=== PATIENT | male | born 1950 | race Caucasian/White ===

== ENCOUNTER 2022-02-23 00:54 | Observation (INO) | payer MEDICARE ==
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
[2022-02-23 02:33] LABS: Absolute Neutrophil Ct (ANC) 6.07 (1.4-6.9); Basophil (Absolute #) 0.01 (0-0.4); Eosinophil % 1.2 % (0.00-5.0); Eosinophil (Absolute #) 0.11 (0-0.5); Hematocrit 34.3 % (42-50); Lymphocyte (Absolute #) 2.49 (1.0-4.6); Lymphocytes % 26.7 % (24.0-44.0); Mean Cell Volume 88.4 fl (78-100); Mean Corpuscular Hemoglobin 28.4 pg (26-32); Mean Corpuscular Hgb Concent. 32.1 g/dl (32-36); Mean Platelet Volume 10.6 fl (7.5-11.0); Monocyte (Absolute #) 0.65 (0.0-1.3); Platelet Count 219 K/mm3 (150-450); Red Blood Count 3.88 M/mm3 (4.1-5.6); Red Cell Distribution Width 16.3 % (11.5-14.0); White Blood Count 9.3 K/mm3 (4.0-10.5)
[2022-02-23 02:44] LABS: ACETAMINOPHEN < 10 ug/ml (10-30); ALBUMIN 3.9 g/dL (3.5-5.0); ALKALINE PHOSPHATASE 67 U/L (38-126); ANION GAP 15.7 MEQ/L (5-15); BLOOD UREA NITROGEN 19 mg/dL (9-20); CHLORIDE 107 mmol/L (98-107); Calcium 9.1 mg/dL (8.4-10.2); Carbon Dioxide 20 mmol/L (22-30); Creatinine 1 0.94 mg/dL (0.66-1.25); EST GLOMERULAR FILTRATION RATE > 60.0 ML/MIN; ETHYL ALCOHOL < 10 mg/dL (0-10); Glucose 106 mg/dL (74-106); Potassium 3.7 mmol/L (3.5-5.1); SALICYLATE < 1.0 mg/dL (2-20); SGOT/AST 19 U/L (17-59); SGPT/ALT 9 U/L (0-50); SODIUM 139 mmol/L (137-145); Total Protein 6.5 g/dL (6.3-8.2)
[2022-02-23 03:33] LABS: Appearance CLEAR (CLEAR); Bilirubin NEGATIVE (NEGATIVE); Glucose NEGATIVE (NEGATIVE); Ketones NEGATIVE (NEGATIVE)
[2022-02-23 03:34] LABS: Dipstick done @ ? MAIN LAB; Nitrite NEGATIVE (NEGATIVE); Ph 6.5 (5-6); Protein,Urine Dip NEGATIVE (Negative); RBC MODERATE Ery/ul (0-5); Urobilinogen 0.2 mg/dL (0-1)
[2022-02-23 03:35] LABS: Bacteria NONE SEEN /HPF (NEGATIVE); RBC NONE SEEN /HPF (0-2); Urine Cultured Indicated? NO; WBC NONE SEEN /HPF (0-5)
[2022-02-23 03:50] LABS: Amphetamine,Urine NEGATIVE (NEGATIVE); Barbiturate,Urine NEGATIVE (NEGATIVE); Benzodiazepine,Urine NEGATIVE (NEGATIVE); Cocaine,Urine NEGATIVE (NEGATIVE); Methadone,Urine NEGATIVE (NEGATIVE); Opiate,Urine NEGATIVE (NEGATIVE); PCP,Urine NEGATIVE (NEGATIVE); THC,Urine NEGATIVE (NEGATIVE)
[2022-02-23 04:38] LABS: INFLUENZA A NEGATIVE (NEGATIVE); INFLUENZA B NEGATIVE (NEGATIVE); RESPIRATORY SYNCTIAL VIRUS NEGATIVE (Negative); SARS-CoV-2 Xpert Express NEGATIVE (NEGATIVE)
[2022-02-23] MEDS ORDERED: Haldol 5 MG ONE (05:47)
[2022-02-23] MEDS ORDERED: Haldol 5 MG IV ONE (05:51)
[2022-02-23] MEDS ORDERED: HUMALOG SQ PRN (17:39)
[2022-02-23] MEDS ORDERED: DUONEB 0.5-3 MG/3 ml Neb IH PRN (17:39)
[2022-02-23] MEDS ORDERED: Haldol 5 MG IM PRN (20:44)
[2022-02-23] MEDS: Cymbalta 30 MG Capsule PO SCH (20:53)
[2022-02-23] MEDS: Apresoline 25 MG TABLET PO SCH (20:58)
[2022-02-23] MEDS: NORVASC 5 MG PO SCH (20:58)
[2022-02-23] MEDS: LYRICA 150MG PO SCH (20:59)
[2022-02-23] MEDS ORDERED: Seroquel 100 MG PO SCH (22:00)
[2022-02-24] MEDS: Coreg 6.25 MG PO SCH ×3 (01:38→21:19)
[2022-02-24 05:35] LABS: Absolute Neutrophil Ct (ANC) 5.67 (1.4-6.9); Basophil (Absolute #) 0.01 (0-0.4); Eosinophil % 1.3 % (0.00-5.0); Eosinophil (Absolute #) 0.12 (0-0.5); Hematocrit 36.3 % (42-50); Hemoglobin 11.4 gm/dl (12.5-18.0); Lymphocyte (Absolute #) 2.56 (1.0-4.6); Lymphocytes % 28.5 % (24.0-44.0); Mean Cell Volume 89.2 fl (78-100); Mean Corpuscular Hgb Concent. 31.4 g/dl (32-36); Monocyte (Absolute #) 0.62 (0.0-1.3); Monocytes % 6.9 % (0.0-12.0); Neutrophil % 63.2 % (36.0-66.0); Platelet Count 227 K/mm3 (150-450); Red Blood Count 4.07 M/mm3 (4.1-5.6); Red Cell Distribution Width 16.4 % (11.5-14.0)
[2022-02-24] MEDS: TYLENOL 325 MG PO PRN ×2 (05:35→13:18)
[2022-02-24 05:54] LABS: ALBUMIN 3.8 g/dL (3.5-5.0); ALKALINE PHOSPHATASE 68 U/L (38-126); ANION GAP 13.9 MEQ/L (5-15); BLOOD UREA NITROGEN 14 mg/dL (9-20); CHLORIDE 109 mmol/L (98-107); Calcium 8.8 mg/dL (8.4-10.2); Carbon Dioxide 19 mmol/L (22-30); Creatinine 1 0.88 mg/dL (0.66-1.25); EST GLOMERULAR FILTRATION RATE > 60.0 ML/MIN; Glucose 109 mg/dL (74-106); Potassium 3.6 mmol/L (3.5-5.1); SGOT/AST 20 U/L (17-59); SGPT/ALT 19 U/L (0-50); SODIUM 138 mmol/L (137-145); Total Protein 6.6 g/dL (6.3-8.2)
--- NOTE | 2022-02-24 08:02 | PCM.SSS ---
History of Present Illness - Chief Complaint Chief Complaint: psychosis History of Present Illness: is a 71 year old male patient from [facility], he spent a day in the ER, was sent for aggressive behavior toward staff/psychosis. he tells me he had a couple of bad days, states he was upset because he couldn't call his son and they wouldn't let him use his phone. he has been in the ER for nearly 24 hours and on the floor overnight and has not had any hostility, received haldol x 1 dose in the ER when he first arrived. he is alert, states he is hoping to move to assisted living in [place] near his son but will have to use up his savings to pay before medicaid/medicare will cover his AL costs which points to good logic and processing. - Review of Systems Constitutional: No Fever, No Chills Respiratory: No Cough, No Short Of Breath Cardiac: No Chest Pain, No Edema, No Syncope Abdominal/Gastrointestinal: No Abdominal Pain, No Nausea, No Vomiting, No Diar hussein Psychological: Emotional Lability Medications & Allergies Home Medications: Home Medication List Allopurinol 300 mg [Zyloprim 300 mg] 300 mg PO DAILY 02/23/22 [History Confirmed 02/23/22] Amlodipine Besylate 5 mg [Norvasc 5 mg] 5 mg PO BID 02/23/22 [History Confirmed 02/23/22] Carbidopa/Levodopa [Carbidopa-Levo 25-100 mg Odt] 1 tab PO TID 02/23/22 [History Confirmed 02/23/22] Carvedilol [Coreg] 6.25 mg PO BID 02/23/22 [History Confirmed 02/23/22] Clotrimazole/Betamet Diprop [Lotrisone Cream] 1 applic TOP BID 02/23/22 [History Confirmed 02/23/22] Duloxetine HCl 30 mg [Cymbalta 30 MG Capsule] 30 mg PO BID 02/23/22 [History Confirmed 02/23/22] Esomeprazole Magnesium 40 mg PO BID 02/23/22 [History Confirmed 02/23/22] Ezetimibe/Simvastatin [Ezetimibe-Simvastatin 10-20 mg] 1 tab PO HS 02/23/22 [His tory Confirmed 02/23/22] Famotidine 20 mg [Pepcid 20 MG] 1 tab PO DAILY 02/23/22 [History Confirmed 02/23/22] Finasteride 5 mg [Proscar 5 MG] 5 mg PO DAILY 02/23/22 [History Confirmed 02/23/22] Hydralazine HCl 25 mg PO TID 02/23/22 [History Confirmed 02/23/22] Ipratropium/Albuterol Sulfate [Iprat-Albut 0.5-3(2.5) mg/3 ml] 1 unit IH QID 02/23/22 [History Confirmed 02/23/22] Metformin HCl 500 mg [Glucophage 500 MG] 500 mg PO BID 02/23/22 [History Confirmed 02/23/22] Nystatin Powder 15 gm [Nystop Powder 15 gm] 1 applic TOP BID 02/23/22 [History Confirmed 02/23/22] Pregabalin [Lyrica 150Mg] 150 mg PO BID 02/23/22 [History Confirmed 02/23/22] Quetiapine Fumarate [Seroquel] 25 mg PO DAILY 02/23/22 [History Confirmed 02/23/22] Quetiapine Fumarate [Seroquel] 50 mg PO HS 02/23/22 [History Confirmed 02/23/22] Roflumilast [Daliresp] 500 mg PO DAILY 02/23/22 [History Confirmed 02/23/22] Sitagliptin Phosphate [Januvia] 100 mg PO DAILY 02/23/22 [History Confirmed 02/23/22] Tamsulosin HCl 0.4 mg [Flomax 0.4 MG] 0.4 mg PO DAILY 02/23/22 [History Confirmed 02/23/22] cloNIDine [Clonidine] 0.1 mg TOP CLARIFY 02/23/22 [History Confirmed 02/23/22] Allergies/Adverse Reactions: Allergies Allergy/AdvReac Type Severity Reaction Status Date / Time atorvastatin Allergy Verified 02/23/22 01:12 celecoxib Allergy Verified 02/23/22 01:26 clindamycin Allergy Verified 02/23/22 01:27 loratadine [From Claritin] Allergy Verified 02/23/22 01:27 - Past Medical History Past Medical History: Yes Neurological History: Alzheimer's Disease, Dementia, Other ENT History: Cataracts Cardiac History: Coronary Artery Disease, Hypertension Respiratory History: COPD, Pneumonia, Other Endocrine Medical History: Diabetes Type II Musculoskelatal History: Osteoarthritis, Other GI Medical History: GERD History: Renal Disease, Other Pyscho-Social History: Other Male Reproductive Disorders: Prostate Problems Comment: PARKINSON'S DISEASE, ANEMIA, ACUTE KINDEY FAILURE, BPH, OBSTRUCTIVE AND REFLUX UROPATHY, HALLUCINATIONS, POSTLAMINECTOMY SYNDROME, SPINAL STENOSIS, PSYCHOTIC DISORDER, CHRONIC RESPIRATORY FAILURE, ALTERED MENTAL STATUS, GOUT, HYPERLIPIDEMIA - Past Surgical History Past Surgical History: Yes Neuro Surgical History: No Pertinent History Cardiac History: CABG Respiratory Surgery: No Pertinent History GI Surgical History: No Pertinent History Genitourinary Surgical Hx: No Pertinent History Musculskeletal Surgical Hx: Other Male Surgical History: No Pertinent History Other Surgical History: RADICULOPATHY, LUMBAR REGION - Social History Smoking Status: Former smoker Exposure to second hand smoke: No Alcohol: None Drug Use: none - Physical Exam Vital Signs: Vital Signs - 24 hr Temp Pulse Resp BP Pulse Ox 02/24/22 07:15 99 F 93 H 18 157/101 96 02/24/22 04:00 99.5 F 87 18 133/77 96 02/24/22 00:00 97.8 F 49 L 20 134/60 95 02/23/22 19:50 98.2 F 39 L 16 175/90 98 02/23/22 19:16 75 18 96 02/23/22 13:49 78 18 138/66 99 02/23/22 09:14 70 18 149/76 98 General Appearance: no apparent distress Neurologic Exam: alert, oriented x 3, cooperative Respiratory Exam: normal breath sounds, lungs clear, No respiratory distress Cardiovascular Exam: regular rate/rhythm, normal heart sounds, normal peripheral pulses Gastrointestinal/Abdomen Exam: soft, normal bowel sounds, No tenderness, No mass Extremity Exam: normal inspection, normal range of motion, pelvis stable Skin Exam: normal color, warm, dry, No rash Results - Labs Lab/Micro Results: Lab Results-Last 24 Hours 02/23/22 02/23/22 02/24/22 Range/Units 09:17 21:48 05:16 WBC 9.0 (4.0-10.5) K/mm3 RBC 4.07 L (4.1-5.6) M/mm3 Hgb 11.4 L (12.5-18.0) gm/dl Hct 36.3 L (42-50) % MCV 89.2 (78-100) fl MCH 28.0 (26-32) pg MCHC 31.4 L (32-36) g/dl RDW 16.4 H (11.5-14.0) % Plt Count 227 (150-450) K/mm3 MPV 10.0 (7.5-11.0) fl Gran % 63.2 (36.0-66.0) % Eos # (Auto) 0.12 (0-0.5) Absolute Lymphs (auto) 2.56 (1.0-4.6) Absolute Monos (auto) 0.62 (0.0-1.3) Lymphocytes % 28.5 (24.0-44.0) % Monocytes % 6.9 (0.0-12.0) % Eosinophils % 1.3 (0.00-5.0) % Basophils % 0.1 (0.0-0.4) % Absolute Granulocytes 5.67 (1.4-6.9) Basophils # 0.01 (0-0.4) Sodium (137-145) mmol/L Potassium (3.5-5.1) mmol/L Chloride (98-107) mmol/L Carbon Dioxide (22-30) mmol/L Anion Gap (5-15) MEQ/L BUN (9-20) mg/dL Creatinine (0.66-1.25) mg/dL Estimated GFR ML/MIN Glucose (74-106) mg/dL POC Glucometer 143 H 121 H (74 to 106) mg/dL Calcium (8.4-10.2) mg/dL Total Bilirubin (0.2-1.3) mg/dL AST (17-59) U/L ALT (0-50) U/L Alkaline Phosphatase (38-126) U/L Serum Total Protein (6.3-8.2) g/dL Albumin (3.5-5.0) g/dL 02/24/22 02/24/22 Range/Units 05:16 06:47 WBC (4.0-10.5) K/mm3 RBC (4.1-5.6) M/mm3 Hgb (12.5-18.0) gm/dl Hct (42-50) % MCV (78-100) fl MCH (26-32) pg MCHC (32-36) g/dl RDW (11.5-14.0) % Plt Count (150-450) K/mm3 MPV (7.5-11.0) fl Gran % (36.0-66.0) % Eos # (Auto) (0-0.5) Absolute Lymphs (auto) (1.0-4.6) Absolute Monos (auto) (0.0-1.3) Lymphocytes % (24.0-44.0) % Monocytes % (0.0-12.0) % Eosinophils % (0.00-5.0) % Basophils % (0.0-0.4) % Absolute Granulocytes (1.4-6.9) Basophils # (0-0.4) Sodium 138 (137-145) mmol/L Potassium 3.6 (3.5-5.1) mmol/L Chloride 109 H (98-107) mmol/L Carbon Dioxide 19 L (22-30) mmol/L Anion Gap 13.9 (5-15) MEQ/L BUN 14 (9-20) mg/dL Creatinine 0.88 (0.66-1.25) mg/dL Estimated GFR > 60.0 ML/MIN Glucose 109 H (74-106) mg/dL POC Glucometer 116 H (74 to 106) mg/dL Calcium 8.8 (8.4-10.2) mg/dL Total Bilirubin 0.80 (0.2-1.3) mg/dL AST 20 (17-59) U/L ALT 19 (0-50) U/L Alkaline Phosphatase 68 (38-126) U/L Serum Total Protein 6.6 (6.3-8.2) g/dL Albumin 3.8 (3.5-5.0) g/dL Accuchecks Date 02/24/22 Time 06:47 Assessment/Plan (1) 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 Code(s): F03.91 - UNSPECIFIED DEMENTIA WITH BEHAVIORAL DISTURBANCE (2) Parkinson disease Current Visit: Yes Status: Acute Code(s): G20 - PARKINSON'S DISEASE Hospital Summary - Vitals & Intake/Output Vital Signs: Vital Signs Temperature 99 F 02/24/22 07:15 Pulse Rate 93 H 02/24/22 07:15 Respiratory Rate 18 02/24/22 07:15 Blood Pressure 157/101 02/24/22 07:15 O2 Sat by Pulse Oximetry 96 02/24/22 07:15 Intake & Output: Intake & Output 02/21/22 02/22/22 02/23/22 02/24/22 11:59 11:59 11:59 11:59 Intake Total 400 Output Total 1350 Balance -950 Weight 98.1 kg 230 kg - Lab Result Diagrams: 02/24/22 05:16 02/24/22 05:16 Lab Results-Last 24 Hrs: Lab Results-Last 24 Hours 02/23/22 02/23/22 02/24/22 Range/Units 09:17 21:48 05:16 WBC 9.0 (4.0-10.5) K/mm3 RBC 4.07 L (4.1-5.6) M/mm3 Hgb 11.4 L (12.5-18.0) gm/dl Hct 36.3 L (42-50) % MCV 89.2 (78-100) fl MCH 28.0 (26-32) pg MCHC 31.4 L (32-36) g/dl RDW 16.4 H (11.5-14.0) % Plt Count 227 (150-450) K/mm3 MPV 10.0 (7.5-11.0) fl Gran % 63.2 (36.0-66.0) % Eos # (Auto) 0.12 (0-0.5) Absolute Lymphs (auto) 2.56 (1.0-4.6) Absolute Monos (auto) 0.62 (0.0-1.3) Lymphocytes % 28.5 (24.0-44.0) % Monocytes % 6.9 (0.0-12.0) % Eosinophils % 1.3 (0.00-5.0) % Basophils % 0.1 (0.0-0.4) % Absolute Granulocytes 5.67 (1.4-6.9) Basophils # 0.01 (0-0.4) Sodium (137-145) mmol/L Potassium (3.5-5.1) mmol/L Chloride (98-107) mmol/L Carbon Dioxide (22-30) mmol/L Anion Gap (5-15) MEQ/L BUN (9-20) mg/dL Creatinine (0.66-1.25) mg/dL Estimated GFR ML/MIN Glucose (74-106) mg/dL POC Glucometer 143 H 121 H (74 to 106) mg/dL Calcium (8.4-10.2) mg/dL Total Bilirubin (0.2-1.3) mg/dL AST (17-59) U/L ALT (0-50) U/L Alkaline Phosphatase (38-126) U/L Serum Total Protein (6.3-8.2) g/dL Albumin (3.5-5.0) g/dL 02/24/22 02/24/22 Range/Units 05:16 06:47 WBC (4.0-10.5) K/mm3 RBC (4.1-5.6) M/mm3 Hgb (12.5-18.0) gm/dl Hct (42-50) % MCV (78-100) fl MCH (26-32) pg MCHC (32-36) g/dl RDW (11.5-14.0) % Plt Count (150-450) K/mm3 MPV (7.5-11.0) fl Gran % (36.0-66.0) % Eos # (Auto) (0-0.5) Absolute Lymphs (auto) (1.0-4.6) Absolute Monos (auto) (0.0-1.3) Lymphocytes % (24.0-44.0) % Monocytes % (0.0-12.0) % Eosinophils % (0.00-5.0) % Basophils % (0.0-0.4) % Absolute Granulocytes (1.4-6.9) Basophils # (0-0.4) Sodium 138 (137-145) mmol/L Potassium 3.6 (3.5-5.1) mmol/L Chloride 109 H (98-107) mmol/L Carbon Dioxide 19 L (22-30) mmol/L Anion Gap 13.9 (5-15) MEQ/L BUN 14 (9-20) mg/dL Creatinine 0.88 (0.66-1.25) mg/dL Estimated GFR > 60.0 ML/MIN Glucose 109 H (74-106) mg/dL POC Glucometer 116 H (74 to 106) mg/dL Calcium 8.8 (8.4-10.2) mg/dL Total Bilirubin 0.80 (0.2-1.3) mg/dL AST 20 (17-59) U/L ALT 19 (0-50) U/L Alkaline Phosphatase 68 (38-126) U/L Serum Total Protein 6.6 (6.3-8.2) g/dL Albumin 3.8 (3.5-5.0) g/dL Micro Results-Entire Visit: Accuchecks Date 02/24/22 Time 06:47 - Procedures and Test Procedures and Tests throughout Hospitalization: Therapy Orders & Screens 02/23/22 19:00 Respiratory Therapy Assessment DAILY Comment: Diagnosis: psychosis - Discharge Disposition: XFER OTHER Condition: Stable Prescriptions: No Action Quetiapine Fumarate [Seroquel] 50 mg PO HS Quetiapine Fumarate [Seroquel] 25 mg PO DAILY Nystatin Powder 15 gm [Nystop Powder 15 gm] 1 applic TOP BID Pregabalin [Lyrica 150Mg] 150 mg PO BID Metformin HCl 500 mg [Glucophage 500 MG] 500 mg PO BID Clotrimazole/Betamet Diprop [Lotrisone Cream] 1 applic TOP BID Sitagliptin Phosphate [Januvia] 100 mg PO DAILY Ipratropium/Albuterol Sulfate [Iprat-Albut 0.5-3(2.5) mg/3 ml] 1 unit IH QID Hydralazine HCl 25 mg PO TID Finasteride 5 mg [Proscar 5 MG] 5 mg PO DAILY Famotidine 20 mg [Pepcid 20 MG] 1 tab PO DAILY Ezetimibe/Simvastatin [Ezetimibe-Simvastatin 10-20 mg] 1 tab PO HS Esomeprazole Magnesium 40 mg PO BID Roflumilast [Daliresp] 500 mg PO DAILY Duloxetine HCl 30 mg [Cymbalta 30 MG Capsule] 30 mg PO BID cloNIDine [Clonidine] 0.1 mg TOP CLARIFY Carvedilol [Coreg] 6.25 mg PO BID Carbidopa/Levodopa [Carbidopa-Levo 25-100 mg Odt] 1 tab PO TID Amlodipine Besylate 5 mg [Norvasc 5 mg] 5 mg PO BID Allopurinol 300 mg [Zyloprim 300 mg] 300 mg PO DAILY Tamsulosin HCl 0.4 mg [Flomax 0.4 MG] 0.4 mg PO DAILY Follow up with: ENVIVE,ENVIVE [Primary Care Provider] -
[2022-02-24] MEDS: LYRICA 150MG PO SCH ×2 (08:35→21:19)
[2022-02-24] MEDS: Cymbalta 30 MG Capsule PO SCH ×2 (08:35→21:19)
[2022-02-24] MEDS: NORVASC 5 MG PO SCH ×2 (08:35→21:18)
[2022-02-24] MEDS: Sinemet 25/100 MG PO SCH ×3 (08:35→21:18)
[2022-02-24] MEDS: Apresoline 25 MG TABLET PO SCH ×3 (08:35→21:18)
[2022-02-24] MEDS: Protonix 40MG Tablet PO SCH (08:35)
[2022-02-24] MEDS: Glucophage 500 MG PO SCH ×2 (08:36→16:32)
[2022-02-24] MEDS ORDERED: NON-FORMULARY ITEM (Carbidopa/Levodopa [Carbidopa-Levo 25-100 Mg Odt] 1 EACH Tab.Rapdis) PO SCH (10:00)
[2022-02-24] MEDS ORDERED: NON-FORMULARY ITEM (Esomeprazole Magnesium [Esomeprazole Magnesium] 40 MG Suspdr.Pkt) PO SCH (10:00)
[2022-02-24] MEDS: Pepcid 20 MG PO SCH (11:51)
[2022-02-24] MEDS: Seroquel 25 MG PO SCH (11:51)
[2022-02-24] MEDS: Proscar 5 MG PO SCH (11:51)
[2022-02-24] MEDS: Januvia 50 MG PO SCH (11:51)
[2022-02-24] MEDS: DALIRESP PO SCH (11:51)
[2022-02-24] MEDS: Flomax 0.4 MG PO SCH (11:51)
[2022-02-24] MEDS: ZYLOPRIM 300 MG PO SCH (11:52)
[2022-02-24] MEDS ORDERED: Catapres-TTS 1 PATCH TOP SCH (12:00)
[2022-02-24] MEDS ORDERED: DUONEB 0.5-3 MG/3 ml Neb IH PRN (13:00)
[2022-02-24] MEDS: NYSTOP POWDER 15 GM TOP SCH (21:19)
[2022-02-24] MEDS: Lotrisone Cream TOP SCH (21:22)
[2022-02-24] MEDS ORDERED: SIMVASTATIN PO SCH (22:00)
[2022-02-24] MEDS ORDERED: [UNRECOGNIZED DRUG - OTHER] PO SCH (22:00)
[2022-02-24] MEDS ORDERED: ZOCOR 20MG PO SCH (22:00)
[2022-02-24] MEDS ORDERED: Zetia 10 MG PO SCH (22:00)
[2022-02-24] MEDS ORDERED: Seroquel 25 MG PO SCH (22:00)
[2022-02-24] MEDS ORDERED: EZETIMIBE PO SCH (22:00)
[2022-02-25] MEDS: TYLENOL 325 MG PO PRN (02:07)
--- NOTE | 2022-02-25 08:18 | PCM.NOTE ---
Date and Time: 02/25/22814 Subjective Assessment: patient is alert and cooperative this morning, no reported problems overnight. he is awaiting his breakfast and pleasant this morning. Objective Exam General Appearance: no apparent distress, alert Respiratory Exam: normal breath sounds, lungs clear, No respiratory distress Cardiovascular Exam: regular rate/rhythm, normal heart sounds Gastrointestinal/Abdomen Exam: soft, No tenderness, No mass OBJECTIVE DATA Vital Signs: Vital Signs - 24 hr Temp Pulse Resp BP Pulse Ox 02/25/22 07:36 98.7 F 62 20 146/72 95 02/25/22 04:00 98.4 F 83 20 121/66 99 02/24/22 23:47 98.7 F 86 20 126/57 98 02/24/22 20:00 98.4 F 85 18 138/84 99 02/24/22 16:00 98.4 F 66 18 99/49 96 02/24/22 11:39 98.6 F 70 16 107/66 95 Pain Assessment - Last Documented Pain Intensity 6 Pain Scale Used 0-10 Pain Scale Intake and Output: Intake & Output 02/22/22 02/23/22 02/24/22 02/25/22 11:59 11:59 11:59 11:59 Intake Total 2080 2700 Output Total 1350 4450 Balance 730 -1750 Weight 98.1 kg 230 kg Lab Results: Lab Results-Last 24 Hours 02/24/22 02/24/22 02/24/22 Range/Units 11:21 16:00 16:27 POC Glucometer 124 H 110 H (74 to 106) mg/dL Hemoglobin A1c 5.60 (4.5-6.0) % 02/24/22 02/25/22 Range/Units 20:57 07:06 POC Glucometer 101 125 H (74 to 106) mg/dL Hemoglobin A1c (4.5-6.0) % Assessment/Plan (1) 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
[2022-02-25] MEDS: Glucophage 500 MG PO SCH (08:22)
[2022-02-25] MEDS: LYRICA 150MG PO SCH (09:13)
[2022-02-25] MEDS: Januvia 50 MG PO SCH (09:13)
[2022-02-25] MEDS: NORVASC 5 MG PO SCH (09:14)
[2022-02-25] MEDS: Apresoline 25 MG TABLET PO SCH ×2 (09:14→14:51)
[2022-02-25] MEDS: Pepcid 20 MG PO SCH (09:14)
[2022-02-25] MEDS: ZYLOPRIM 300 MG PO SCH (09:14)
[2022-02-25] MEDS: Protonix 40MG Tablet PO SCH (09:14)
[2022-02-25] MEDS: Sinemet 25/100 MG PO SCH ×2 (09:14→14:51)
[2022-02-25] MEDS: Seroquel 25 MG PO SCH (09:14)
[2022-02-25] MEDS: Flomax 0.4 MG PO SCH (09:14)
[2022-02-25] MEDS: Coreg 6.25 MG PO SCH (09:14)
[2022-02-25] MEDS: Cymbalta 30 MG Capsule PO SCH (09:14)
[2022-02-25] MEDS: Proscar 5 MG PO SCH (09:15)
[2022-02-25] MEDS: DALIRESP PO SCH (09:15)
[2022-02-25] MEDS: NYSTOP POWDER 15 GM TOP SCH (09:15)
[2022-02-25] MEDS: Lotrisone Cream TOP SCH ×2 (09:15→11:36)
[2022-02-25 12:11] VITALS: BP 144/70; PULSE 70; O2SAT 90
== END 2022-02-25 15:20 ==
LOC: ED 00:54 → MED SURG 17:36
PROVIDERS: ADMIT Family Medicine; ATTEND Family Medicine
DX: F03.91 Unspecified dementia, unspecified severity, with behavioral disturbance (principal); G20 Parkinson's disease; I25.10 Atherosclerotic heart disease of native coronary artery without angina pectoris; I10 Essential (primary) hypertension; E11.9 Type 2 diabetes mellitus without complications; Z79.899 Other long term (current) drug therapy; Z20.828 Contact with and (suspected) exposure to other viral communicable diseases
CPT/HCPCS: 0241U; 36000; 36415; 80053; 80307; 81015; 82947; 83036; 85025; 93005; 94760; 96374; 99285; G0480; J1630; A9270-GY